=== PATIENT | female | born 1960 | race Caucasian/White ===

== ENCOUNTER 2020-09-28 14:47 | Emergency (ER) | payer OTHER, SELFPAY ==
[~2020-09-28] VITALS: Ht 162.6 cm; Wt 114.0 kg
[~2020-09-28 14:47] MED LIST: ATOR10TA PO; GABA300C PO; GLIP10TE PO; MECL-303 PO; METF850T PO; NAPR-54 PO; TRAM50TA3 PO
[2020-09-28 14:49] VITALS: BP 134/92
--- NOTE | 2020-09-28 15:06 | NUR ---
TAKEN TO BED 1
--- NOTE | 2020-09-28 15:07 | NUR ---
59Y F c/c L sided facial drooping since Sunday, she noticed while having dinner with her family "she couldn't properly chew" and said it has been getting worse, yesterday it "felt numb". She also c/o L sided head pain she characterizes as "sore" applying cold compresses slightly alleviates pain. Assymetrical smile, symmertrical tongue. Stimulation intact on both sides of face. Pt said she feels imbalanced but attributes it to recovering from gallbladder surgert x2mos. Denies L sided weakness and paresthesia. Speech is clear. PMH: DM2, HTN, HPD ALLX: Aspirin
--- NOTE | 2020-09-28 15:28 | NUR ---
Pt is in lowest locked bed position x1 rail, even fall and rise of breath, on pulse and equipment monitor phototypesetting.
[2020-09-28] MEDS ORDERED: predniSONE 20 MG TAB PO ONE (15:35)
--- NOTE | 2020-09-28 15:53 | NUR ---
Pt wheeled to CT.
--- NOTE | 2020-09-28 16:05 | NUR ---
PT back from CT.
[2020-09-28] MEDS ORDERED: POLY15SO74 OP (16:34)
[2020-09-28] MEDS ORDERED: ACYC-278 PO (16:34)
[2020-09-28] MEDS ORDERED: PRED20TA5 PO (16:34)
[2020-09-28 16:52] VITALS: BP 134/92
--- NOTE | 2020-09-28 16:52 | NUR ---
Patient discharged with v/s stable. Written and verbal after care instructions given and explained. Patient alert, oriented and verbalized understanding of instructions. Ambulatory with steady gait. All questions addressed prior to discharge. ID band removed. Patient advised to follow up with PMD. Rx of Acyclovir, Artificial tears, and Prednisone given. Patient educated on indication of medication including possible reaction and side effects. Opportunity to ask questions provided and answered.
== END 2020-09-28 16:52 | disposition home or self-care (01) ==
LOC: MED 14:47
DX: G51.0 Bell's palsy (principal); E11.9 Type 2 diabetes mellitus without complications; I10 Essential (primary) hypertension; Z86.73 Personal history of transient ischemic attack (TIA), and cerebral infarction without residual deficits; Z90.49 Acquired absence of other specified parts of digestive tract; E78.5 Hyperlipidemia, unspecified; Z88.6 Allergy status to analgesic agent; Z79.84 Long term (current) use of oral hypoglycemic drugs; Z79.899 Other long term (current) drug therapy
CPT/HCPCS: 70450; 99284; J7512